=== PATIENT | male | born 1965 | race Caucasian/White ===

== ENCOUNTER 2016-08-17 07:31 | Day surgery (SDC) | payer BC ==
[2016-08-17] MEDS: Lactated Ringers 1,000 ML IV SCH ×2 (08:17→08:58)
[2016-08-17] MEDS ORDERED: Midazolam 1 MG/ML 2 ML SDV IV ONE (10:00)
[2016-08-17] MEDS ORDERED: Propofol 200 MG/20 ML SDV IV ONE (10:00)
--- NOTE | 2016-08-17 10:38 | PCM.OPNOTE ---
- General Post-Op/Procedure Note Date of Surgery/Procedure: 08/17/16 Operative Procedure(s): c scope with biopsy Findings: rectal polyp Pre Op Diagnosis: screening Post-Op Diagnosis: rectal polyp Anesthesia Technique: MAC Primary Surgeon: Librado Chung Anesthesia Provider: Claudette Renner Cna Instructor: Kareen Hunt Pathology: rectal polyp Complications: None Condition: Good Free Text/Narrative:: see dictation
[2016-08-17 11:15] VITALS: BP 141/89
--- NOTE | 2016-08-17 14:19 | OR ---
DATE OF OPERATION: 08/17/2016 SURGEON: Librado Chung MD PROCEDURE PERFORMED: Colonoscopy with cold forceps biopsy. PREOPERATIVE DIAGNOSIS: Need for screening colonoscope. POSTOPERATIVE DIAGNOSIS: Rectal polyp. INDICATIONS FOR PROCEDURE: This is a 51-year-old white male, referred for screening colonoscopy. He was offered and accepted the same. DESCRIPTION OF OPERATION: After an excellent IV sedation was administered, digital rectal exam was performed. No marked abnormality was noted. The flexible colonoscope was inserted and advanced to the cecum without difficulty. The following findings were noted. Prep was excellent. The ascending colon, unremarkable. Transverse colon, unremarkable. Descending colon, unremarkable. Sigmoid, unremarkable. Rectum, a small 3 mm polyp, biopsied cold biopsy forceps and sent for permanent. Colon was deflated as the scope was removed. The patient tolerated the procedure well and was taken to recovery room in good condition. /[id number] /[id number]
== END 2016-08-17 11:40 | disposition home or self-care (01) ==
LOC: FB.SDS 07:31
PROVIDERS: ATTEND Surgery
DX: Z12.11 Encounter for screening for malignant neoplasm of colon (principal); K62.1 Rectal polyp
CPT/HCPCS: 45380; 88305; J2250; J2704; J7120